=== PATIENT | female | born 1980 | race Caucasian/White ===

== ENCOUNTER 2021-07-08 09:40 | Emergency (ER) | payer MEDICAID ==
[~2021-07-08] VITALS: Ht 162.6 cm; Wt 88.2 kg
[2021-07-08 11:13] LABS: BASO # 0.02 K/mm3 (0.02-0.10); EOS # 0.14 K/mm3 (0.04-0.40); EOS % 2.4 % (1.0-5.0); HEMOGLOBIN 12.9 g/dL (12.5-16.0); LYMPH# 2.02 K/mm3 (1.50-4.00); MEAN CELL VOLUME 85 fl (78-100); MEAN CORPUSCULAR HEMOGLOBIN 27 pg (27-31); MEAN CORPUSCULAR HGB CONC 32 g/dL (33-37); MEAN PLATELET VOLUME 9.9 fl (7.4-10.4); PLATELET COUNT 322 K/mm3 (130-400); RED CELL DISTRIBUTION WIDTH 12.5 % (11.5-14.5); WHITE BLOOD COUNT 5.9 K/mm3 (4.8-10.8)
[2021-07-08] MEDS ORDERED: PRENATA1 CTB PO (11:14)
[2021-07-08] MEDS ORDERED: VITAMIN C100 M3 PO (11:14)
[2021-07-08] MEDS ORDERED: VITAMIN D-40010 MCG PO (11:14)
[2021-07-08 11:18] LABS: ALBUMIN 4.2 g/dL (3.5-5.0); POTASSIUM 4.1 mmol/L (3.5-5.1); SODIUM 142 mmol/L (136-145)
[2021-07-08 11:19] LABS: CALCIUM 9.6 mg/dL (8.3-10.5)
[2021-07-08 11:20] LABS: GLUCOSE 89 mg/dL (65-105)
[2021-07-08 11:21] LABS: TOTAL PROTEIN 7.8 g/dL (6.4-8.3)
[2021-07-08 11:22] LABS: CARBON DIOXIDE 27 mmol/L (22-29); TOTAL BILIRUBIN 0.3 mg/dL (0.2-1.2)
[2021-07-08 11:26] LABS: AST-SGOT 17 U/L (5-34)
[2021-07-08 11:27] LABS: ALT/SGPT 16 U/L (0-55)
[2021-07-08 11:41] LABS: TROPONIN-I < 0.030 ng/mL (<0.030)
[2021-07-08] MEDS ORDERED: CYCLOBENZAPRINE10 M1 PO (12:19)
[2021-07-08 12:28] VITALS: BP 132/78
== END 2021-07-08 12:28 | disposition home or self-care (01) ==
LOC: ED 09:40
PROVIDERS: Family Medicine
DX: M62.838 Other muscle spasm (principal); Z86.16 Personal history of COVID-19
CPT/HCPCS: J2360